=== PATIENT | male | born 1990 | race Caucasian/White ===

== ENCOUNTER 2018-09-09 12:07 | Emergency (ER) | payer SELFPAY ==
[~2018-09-09] VITALS: Ht 170.2 cm; Wt 77.1 kg
[2018-09-09 12:55] VITALS: BP 128/80
[2018-09-09] MEDS ORDERED: SULF1TAB24 PO (13:17)
--- NOTE | 2018-09-09 13:18 | PHYS DOC ---
Past Medical History Past Medical History: No Pertinent History Past Surgical History: No Surgical History Alcohol Use: None Drug Use: None Adult General Chief Complaint Chief Complaint: ABSCESS HPI HPI Patient is a 28 year old male who presents with a small abscess to his right wrist. 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 He does have erythema with a small purulent top to the wound. He denies fever, nausea or vomiting. Review of Systems Review of Systems Constitutional: Denies fever or chills [] Respiratory: Denies cough or shortness of breath [] Cardiovascular: No additional information not addressed in HPI [] Musculoskeletal: Denies back pain or joint pain [] Integument: 1 cm in diameter erythematous papule with a small purulent head noted Neurologic: Denies headache, focal weakness or sensory changes [] Endocrine: Denies polyuria or polydipsia [] All other systems were reviewed and found to be within normal limits, except as documented in this note. Allergies Allergies Allergies Coded Allergies Type Severity Reaction Last Updated Verified No Known Drug Allergies 09/09/18 No Physical Exam Physical Exam Constitutional: Well developed, well nourished, no acute distress, non-toxic appearance. [] HENT: Normocephalic, atraumatic, bilateral external ears normal, oropharynx moist, no oral exudates, nose normal. [] Eyes: PERRLA, EOMI, conjunctiva normal, no discharge. [] Neck: Normal range of motion, no tenderness, supple, no stridor. [] Cardiovascular:Heart rate regular rhythm, no murmur [] Lungs & Thorax: Bilateral breath sounds clear to auscultation [] Abdomen: Bowel sounds normal, soft, no tenderness, no masses, no pulsatile masses. [] Skin: Warm, dry, no erythema, no rash. [] Back: No tenderness, no CVA tenderness. [] Extremities: No tenderness, no cyanosis, no clubbing, ROM intact, no edema. [] Neurologic: Alert and oriented X 3, normal motor function, normal sensory function, no focal deficits noted. [] Psychologic: Affect normal, judgement normal, mood normal. [] Current Patient Data Vital Signs Vital Signs Date Time Temp Pulse Resp B/P (MAP) Pulse Ox O2 Delivery O2 Flow Rate FiO2 09/09/18 12:55 97.9 60 16 128/80 (96) 97 Room Air 97.9 EKG EKG [] Radiology/Procedures Radiology/Procedures [] Course & Med Decision Making Course & Med Decision Making Pertinent Labs and Imaging studies reviewed. (See chart for details) []The papule was unroofed and a wound culture was obtained. Staff Physician Addendum: I was working in the ER during the course of this patient's visit. I was available for consultation as needed, but I was not directly involved in the care of this patient. Dragon Disclaimer Dragon Disclaimer This electronic medical record was generated, in whole or in part, using a voice recognition dictation system. Departure Departure Impression: Primary Impression: Abscess Disposition: HOME, SELF-CARE Condition: STABLE Referrals: NO PCP (PCP) Patient Instructions: Abscess Additional Instructions: Take the antibiotic as directed. You may use hot compresses on the affected area multiple times daily. If the antibiotic that was prescribed will not clear the infection we will call. Return to the emergency department if worsening. Scripts Sulfamethoxazole/Trimethoprim (BACTRIM DS TABLET) 1 Each Tablet 1 TAB PO BID, #20 TAB Prov: HERVE OROZCO APRN 09/09/18 HERVE OROZCO APRN Sep 09, 2018 13:18 CHAVA COY MD Sep 10, 2018 06:14
--- NOTE | 2018-09-18 09:33 | VNOTE ---
CALL BACK NOTE CALL BACK Microbiology 09/09/18 Anaerobic/Aerobic Culture - Final, Complete 09/09/18 Anaerobic Culture Result 1 (MADELINE) - Final, Complete 09/09/18 Aerobic Culture - Final, Complete 09/09/18 Aerobic Culture Result 1 (MADELINE) - Final, Complete 09/09/18 Antimicrobic Susceptibility - Final, Complete 09/09/18 Gram Stain - Final, Complete 09/09/18 Gram Stain Result 1 (MADELINE) - Final, Complete 09/09/18 Gram Stain Result 2 (MADELINE) - Final, Complete Patient was discharged on Bactrim for a wound, wound culture positive for MRSA culture shows patient is resistant to Bactrim, attempted to call him, phone is not going through KM SOTO APRN Sep 18, 2018 09:33
--- NOTE | 2018-09-23 09:30 | VNOTE ---
CALL BACK NOTE CALL BACK Microbiology 09/09/18 Anaerobic/Aerobic Culture - Final, Complete 09/09/18 Anaerobic Culture Result 1 (MADELINE) - Final, Complete 09/09/18 Aerobic Culture - Final, Complete 09/09/18 Aerobic Culture Result 1 (MADELINE) - Final, Complete 09/09/18 Antimicrobic Susceptibility - Final, Complete 09/09/18 Gram Stain - Final, Complete 09/09/18 Gram Stain Result 1 (MADELINE) - Final, Complete 09/09/18 Gram Stain Result 2 (MADELINE) - Final, Complete Discharged on Bactrim for a wound, wound culture positive for MRSA culture shows patient is resistant to Bactrim, attempted to call him, phone is not going through KM SOTO APRN Sep 23, 2018 09:30 CHAVA COY MD Sep 23, 2018 17:36
--- NOTE | 2018-09-28 09:47 | VNOTE ---
CALL BACK NOTE CALL BACK Microbiology 09/09/18 Anaerobic/Aerobic Culture - Final, Complete 09/09/18 Anaerobic Culture Result 1 (MADELINE) - Final, Complete 09/09/18 Aerobic Culture - Final, Complete 09/09/18 Aerobic Culture Result 1 (MADELINE) - Final, Complete 09/09/18 Antimicrobic Susceptibility - Final, Complete 09/09/18 Gram Stain - Final, Complete 09/09/18 Gram Stain Result 1 (MADELINE) - Final, Complete 09/09/18 Gram Stain Result 2 (MADELINE) - Final, Complete Patient gave us a call back regarding his lab results. He states his infection has completely cleared up, he does not have any more symptoms. KM SOTO APRN Sep 28, 2018 09:47
== END 2018-09-09 13:31 | disposition home or self-care (01) ==
LOC: ER 12:07
DX: L02.413 Cutaneous abscess of right upper limb (principal)
CPT/HCPCS: 87071; 87075; 87186; 99284